=== PATIENT | male | born 1995 | race Caucasian/White ===

== ENCOUNTER 2019-04-04 19:10 | Emergency (ER) | payer OTHER ==
[~2019-04-04] VITALS: Ht 182.9 cm; Wt 81.7 kg
[~2019-04-04 19:10] MED LIST: LATUDA20 MG PO; NORCO 5-325 TA1 EACH PO; PEPCID20 MG PO; VENLAFAXINE HCL75 M1 PO; ZOFRAN ODT4 MG PO; ZOFRAN4 MG PO
[2019-04-04] MEDS ORDERED: EPIPEN 2-P0.3 MG/0.3 IM (20:45)
[2019-04-04] MEDS ORDERED: HYDROXYZINE HCL25 MG PO (20:45)
== END 2019-04-04 20:56 | disposition home or self-care (01) ==
LOC: ED 19:10
DX: T78.1XXA Other adverse food reactions, not elsewhere classified, initial encounter (principal); L50.0 Allergic urticaria; Z91.018 Allergy to other foods
CPT/HCPCS: 96361; 96374; 99283-25; J0171; J2405; J7030